=== PATIENT | male | born 1970 | race Caucasian/White ===

== ENCOUNTER 2023-01-09 04:46 | Emergency (ER) | payer SELFPAY ==
[~2023-01-09] VITALS: Ht 175 cm; Wt 79.4 kg
[2023-01-09 04:58] VITALS: BP 115/98
[2023-01-09] MEDS ORDERED: ONDANSETRON 4 MG/2 ML (SDV) Z0FRAN IVP ONE (05:15)
[2023-01-09] MEDS ORDERED: LACTATED RINGERS 1,000 ML IV ONE (05:15)
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
== END 2023-01-09 05:19 | disposition left against medical advice (07) ==
LOC: ER 04:50
DX: K02.9 Dental caries, unspecified (principal); M54.50 Low back pain, unspecified; R11.0 Nausea; R19.7 Diarrhea, unspecified; F17.210 Nicotine dependence, cigarettes, uncomplicated
CPT/HCPCS: 93041